=== PATIENT | male | born 1950 | race Caucasian/White ===

== ENCOUNTER → 2016-09-02 | Outpatient (CLI) | payer OTHER ==
[~2016-09-02] VITALS: Ht 182.9 cm; Wt 107.6 kg
[~2016-09-02] MED LIST: CALCIUM 600 +1 EAC1 PO; CARVEDILOL6.25 MG PO; CELEBREX 200 M200 M1 PO; CRESTOR10 MG PO; FISH OIL 1,001000 M2 PO; HYDROCODONE-APA1 TA1 PO; LANTUS100 UNIT/M SUBQ; LEVEMIR100 UNIT/1 SQ; LISINOPRIL10 MG PO; LOW DOSE ASPIRI81 M1 PO; LYRICA 75 MG CA75 MG PO; METFORMIN HCL500 MG PO; OXYCODONE HCL15 MG PO; OXYCODONE HCL30 MG PO; PLAVIX 75 MG TA75 M1 PO
[2016-09-02 11:24] VITALS: BP 91/59
== END | disposition home or self-care (01) ==
LOC: PAIN 10:35
DX: M50.30 Other cervical disc degeneration, unspecified cervical region (principal); M47.22 Other spondylosis with radiculopathy, cervical region; G89.29 Other chronic pain; Z87.891 Personal history of nicotine dependence; Z79.82 Long term (current) use of aspirin; Z79.4 Long term (current) use of insulin; Z79.899 Other long term (current) drug therapy

== ENCOUNTER → 2017-01-27 | Outpatient (CLI) | payer OTHER | LOC: ULTRA 08:07 | DX: N18.4 Chronic kidney disease, stage 4 (severe) (principal); R31.9 Hematuria, unspecified; D69.6 Thrombocytopenia, unspecified ==

== ENCOUNTER → 2017-03-25 | Outpatient (CLI) | payer OTHER | LOC: CAT 02-26 11:59 | DX: S32.058A Other fracture of fifth lumbar vertebra, initial encounter for closed fracture (principal); K40.90 Unilateral inguinal hernia, without obstruction or gangrene, not specified as recurrent; M47.896 Other spondylosis, lumbar region; M51.37 Other intervertebral disc degeneration, lumbosacral region; M43.17 Spondylolisthesis, lumbosacral region; X58.XXXA Exposure to other specified factors, initial encounter; Y93.89 Activity, other specified; Y92.89 Other specified places as the place of occurrence of the external cause; Y99.8 Other external cause status ==

== ENCOUNTER → 2018-02-15 | Outpatient (CLI) | payer OTHER ==
[~2018-02-15] VITALS: Ht 182.9 cm; Wt 97.0 kg
--- NOTE | ~2018-02-15 | HPC ---
[facility] [place] [address] PAIN MANAGEMENT CONSULTATION Name: AUSTIN LINDA Room #: [facility]#: [id number] Admission: 02/15/18 Attend Phys: John Bates DO Discharge: Date of : 50 Report #: [id number] THIS REPORT FOR: //name// CC: John Rodrigues MD DATE OF SERVICE: 02/15/2018 REFERRING PHYSICIAN: Dr. Jesse Rodrigues. CHIEF COMPLAINT: Neck pain and bilateral upper extremity pain and paresthesias, right greater than left. HISTORY OF PRESENT ILLNESS: As you know, the patient is a very pleasant 67-year-old male who has had a longstanding history of neck pain, upper extremity pain with paresthesias. The patient originally presented with neck pain and right upper extremity pain that presented spontaneously in 2017. At that visit of 2017, he was seen, evaluated and underwent a cervical epidural injection under fluoroscopic guidance to address symptoms. He did very well with this injection. Unfortunately, he has had a recurrence of symptoms. He is now experiencing pain at night and during the daytime hours. He returns today in followup visit to discuss treatment options for cervical radiculopathy. The patient indicates today pain is chronic in nature, describes the pain as constant, aching, numbness and tingling, exacerbated with activities, worse in the morning, after sleeping and arising from bed, alleviated with medications. He returns today to discuss the possibility of undergoing a cervical epidural injection to address cervical radiculopathy. He has not suffered any injury or trauma nor has he undergone full evaluation with imaging. ALLERGIES: No known drug allergies. CURRENT MEDICATIONS: Oxycodone 30 mg tablet b.i.d., calcium carbonate 1 tab per day, aspirin 81 mg per day, insulin 30 units before bedtime, lovastatin 10 mg per day, lisinopril 10 mg once a day, carvedilol 6.25 mg b.i.d., Plavix 75 mg per day, pregabalin 75 mg two in the morning and once at night, metformin 500 mg twice a day, omega-3 fish oil 1 tab per day. SOCIAL HISTORY: The patient denies tobacco, alcohol, IV or illicit drug use. He is unaccompanied today. IMAGING: There is no new imaging available. PHYSICAL EXAMINATION: VITAL SIGNS: Blood pressure 128/86, pulse 63, respiratory rate 16 and unlabored. The patient is 96% on room air, height 6 feet tall, weight 213.8 [place] [address] PAIN MANAGEMENT CONSULTATION Name: AUSTIN LINDA Room #: [facility]#: [id number] Admission: 02/15/18 Attend Phys: John Bates DO Discharge: Date of : 50 Report #: [id number] pounds, BMI calculated 29.0. GENERAL: Well-developed, well-nourished, well-hydrated 67-year-old male appearing his stated age, placing current pain score at 2-3/10. HEENT: Normocephalic, atraumatic. Pupils equal, round, reactive to light. Extraocular muscles are intact. Sclerae nonicteric without injection. NEUROLOGIC: Cranial nerves 2-12 grossly intact. Speech is fluent. The patient deemed an excellent historian. LUNGS: Clear, no wheeze, rhonchi or rales. CARDIOVASCULAR: Regular. No appreciable gallop, no rub. ABDOMEN: Soft, nontender, nondistended, normoactive bowel sounds. EXTREMITIES: Show no clubbing, no cyanosis, no edema. MUSCULOSKELETAL: Upper extremity strength is symmetrical 5/5, intact to light touch from C5 through T1 dermatomes with a slight alteration in C7 dermatomal distribution bilaterally distally noted over the fingers. Deep tendinous reflexes are symmetrical in biceps, brachioradialis and triceps. Spurling's test positive. Cervical provocation testing including extension, rotation and lateral flexion all intensify axial cervical spine pain. There is radiation of symptoms with lateral flexion in dermatomal distribution bilaterally. ASSESSMENT: 1. Cervical radiculopathy. 2. Cervical spondylosis with radiculopathy. 3. Chronic intractable pain. PLAN: 1. The patient has returned to our clinic with increasing neck pain, bilateral upper extremity pain and paresthesias. The distribution of symptoms appear to be upon the C7 dermatomes bilaterally involving the middle finger and the ring finger on both sides, right greater than left. The patient and I discussed at length the treatment options for cervical radiculopathy that is bilateral in nature. The following was discussed with the patient. We discussed physical therapy, stretching exercises and traction techniques as a treatment option. We discussed adjustments in medication therapy, escalating his Lyrica from 150 mg in the morning and 75 mg at night, all the way up to 150 mg in the morning and 225 mg at night in hopes of improving pain. We discussed epidural injections under fluoroscopic guidance for which the patient was referred to our clinic. We also discussed surgical options. After reviewing risks and benefits of all proposed treatment options, the patient chose to begin the precertification process for cervical epidural injection, but we will make adjustments in his medication today. 2. The patient was advised third green party payer restrictions require the authorization be obtained. This authorization could take anywhere from 4-10 working days. We will begin this process immediately. Once we have this authorization, we will contact the patient to return to undergo cervical epidural injection under fluoroscopic guidance to address cervical radicular [facility] [address] [place] [address] PAIN MANAGEMENT CONSULTATION Name: AUSTIN LINDA Room #: [facility].#: [id number] Admission: 02/15/18 Attend Phys: John Bates DO Discharge: Date of : 50 Report #: [id number] symptoms. 3. We have suggested the patient increase his Lyrica from 150 mg in the morning and 75 mg at night, all the way to 150 mg b.i.d. for 3 nights if necessary and no side effects, then increase to 150 mg in the morning and 225 mg at night. I have given the patient samples of the Lyrica to be able to escalate his dose from his current 3 tablet 75 mg dosing a day. The patient was given a titration and advised to take the medication as directed. 4. We will see the patient back in followup visit once we have achieved authorization for the patient to undergo cervical epidural injection. He will then need to discontinue his Plavix 7 days prior to injection date to safely undergo the procedure per FART[employer] guidelines. We will establish the patient's appointment once we have received authorization. Once the authorization is received, then we will have him return in 7 days after to undergo epidural. By: [id number] John Bates DO /nt
[2018-02-15 08:15] VITALS: BP 128/86
== END ==
LOC: PAIN 06:52
DX: M47.22 Other spondylosis with radiculopathy, cervical region (principal); G89.4 Chronic pain syndrome; Z79.899 Other long term (current) drug therapy

== ENCOUNTER → 2018-02-23 | Outpatient (CLI) | payer OTHER ==
[~2018-02-23] VITALS: Ht 182.9 cm; Wt 99.1 kg
--- NOTE | ~2018-02-23 | HPC ---
[facility] [place] [address] PAIN MANAGEMENT CONSULTATION Name: AUSTIN LINDA Room #: REG [facility]#: [id number] Admission: 02/23/18 Attend Phys: John Bates DO Discharge: Date of : 50 Report #: [id number] THIS REPORT FOR: //name// CC: John Rodrigues MD DATE OF SERVICE: 02/23/2018 REFERRING PHYSICIAN: Jesse Rodrigues MD. CHIEF COMPLAINT: Neck pain, bilateral upper extremity pain with paresthesias, right greater than left. HISTORY OF PRESENT ILLNESS: As you know, the patient is a very pleasant 67-year-old male, returning in followup visit with continued neck pain, upper extremity pain with paresthesias. The patient has received precertification to undergo cervical epidural injection under fluoroscopic guidance to address cervical radicular symptoms. He has been off his anticoagulants for 7 days in preparation for today's procedure. He has just received authorization to undergo cervical epidural injection to address cervical radicular symptoms. He denies new injury, new trauma or any changes in medical history except for the discontinuation of Plavix from our last visit. ALLERGIES: No known drug allergies. CURRENT MEDICATIONS: Oxycodone, calcium carbonate, aspirin, insulin, lovastatin, lisinopril, carvedilol, Plavix, pregabalin, metformin, omega-3 fish oil. SOCIAL HISTORY: The patient denies tobacco, alcohol, IV or illicit drug use. He is unaccompanied today. IMAGING: No new imaging available. PHYSICAL EXAMINATION: VITAL SIGNS: Blood pressure 122/75, pulse 63, respiratory rate 16 and unlabored. The patient is 96% on room air, height 6 feet tall, weight 218.4 pounds, BMI calculated 29.6. GENERAL: Well-developed, well-nourished, well-hydrated 67-year-old male appearing stated age, placing current pain score at 2-4/10. HEENT: Normocephalic, atraumatic. Pupils equal, round, reactive to light. EXTREMITIES: Show no clubbing, no cyanosis, no edema. MUSCULOSKELETAL: Upper extremity strength is symmetrical 5/5. Muscle bulk and tone equal and symmetrical in comparing left lower extremity to right. There is slight alteration in C7 dermatomal tactile sensation noted over the fingers [address] [address] PAIN MANAGEMENT CONSULTATION Name: AUSTIN LINDA Room #: REG [facility]#: [id number] Admission: 02/23/18 Attend Phys: John Bates DO Discharge: Date of : 50 Report #: [id number] bilaterally. Cervical provocation testing is met with increase in axial cervical spine pain. Spurling's test positive. ASSESSMENT: 1. Cervical radiculopathy. 2. Cervical spondylosis with radiculopathy. 3. Chronic intractable pain. PLAN: 1. The patient returns today in followup visit having received authorization to undergo cervical epidural injection. He has also discontinued his Plavix 7 days ago to undergo this procedure. He has been advised on the risks and benefits of the procedure, which include, but are not necessarily limited to bleeding, bruising, infection, worsening pain, no relief of pain, also risk of temporary or permanent muscle weakness, temporary or permanent nerve damage, possible paralysis, post-dural puncture headache and . The patient states understood and wished to proceed. 2. No medication changes made at today's visit. The patient to continue current medical therapy as previously prescribed. 3. We will see the patient back in followup visit on an as needed basis, possible next in the series of cervical epidural injections. PROCEDURE NOTE DESCRIPTION OF PROCEDURE: C7-T1 cervical epidural steroid injection under fluoroscopic guidance. This is the first procedure of the second series that the patient is undergoing. After obtaining written consent, the patient was taken back to the fluoroscopy suite and placed in a prone position with separate pillows under chest and forehead to decrease cervical lordosis. The skin overlying the cervical area was prepped and draped in an aseptic fashion. The C7-T1 vertebral interspace was identified by AP fluoroscopy. The skin and subcutaneous tissue overlying the target site of injection was anesthetized using 3 mL of 1% lidocaine. A 20-gauge 3-1/2 inch Tuohy needle was advanced under fluoroscopic guidance toward the epidural space using a midline approach. The epidural space was identified using a loss of resistance to air technique. After negative aspiration for heme or cerebrospinal fluid, a total of 1 mL of Omnipaque was injected. A cervical epidurogram was confirmed using AP and oblique fluoroscopy. After negative aspiration for heme or cerebrospinal fluid, 5 mL of a solution containing 2 mL, 40 mg per mL, 80 mg total triamcinolone and 3 mL lidocaine 1% was injected in increments. Contrast spread was noted from posterior epidural space. The needle was then retracted approximately fci and the needle track was flushed with 1 mL of 1% lidocaine. There were no [facility] [address] [place] [address] PAIN MANAGEMENT CONSULTATION Name: AUSTIN LINDA Room #: REG [facility]#: [id number] Admission: 02/23/18 Attend Phys: John Bates DO Discharge: Date of : 50 Report #: [id number] apparent new sensory deficits in the upper extremities present following the procedure. A sterile bandage was placed over the injection site. The heart rate, pulse oximetry and blood pressure were continuously monitored after the procedure. There were no apparent complications. The patient tolerated the procedure well and was carefully escorted in the recovery room in stable condition. After meeting discharge criteria, the patient was discharged home. By: [id number] John Bates DO /nt
[2018-02-23 09:32] VITALS: BP 122/75
== END | disposition home or self-care (01) ==
LOC: PAIN 09:19
DX: M47.22 Other spondylosis with radiculopathy, cervical region (principal); G89.29 Other chronic pain; Z79.891 Long term (current) use of opiate analgesic; Z79.4 Long term (current) use of insulin; Z79.899 Other long term (current) drug therapy; Z79.01 Long term (current) use of anticoagulants; Z87.891 Personal history of nicotine dependence; Z79.82 Long term (current) use of aspirin